=== PATIENT | male | born 1975 | race Caucasian/White ===

== ENCOUNTER → 2016-09-21 08:38 | Outpatient (CLI) | payer BC | END | disposition home or self-care (01) | LOC: D.CT 08:38 | DX: I65.23 Occlusion and stenosis of bilateral carotid arteries (principal) ==

== ENCOUNTER 2019-05-28 13:35 | Outpatient (CLI) | payer OTHER ==
[~2019-05-28] VITALS: Ht 175.3 cm; Wt 77.6 kg
[2019-05-28] MEDS ORDERED: OXYCODONE HCL5 M1 PO (14:38)
[2019-05-28] MEDS ORDERED: IBUPROFEN600 MG PO (14:40)
[2019-05-28] MEDS ORDERED: ZOFRAN4 MG PO (14:41)
[2019-05-28] MEDS ORDERED: FLOMAX0.4 MG PO (14:41)
[2019-05-28] MEDS ORDERED: COZAAR25 MG PO (14:42)
[2019-05-28] MEDS ORDERED: WELLBUTRIN SR150 MG PO (14:43)
[2019-05-28 15:13] VITALS: BP 124/76; Ht 175.3 cm; Wt 77.6 kg
--- NOTE | 2019-05-28 16:35 | NUR ---
PATIENT OPTS TO GO HOME AT THIS TIME, IS NOT HAVING ANY PAIN AND STATES IF IT RETURNS HE HAS MEDS. PIV DC'D WITH TIP INTACT. DISCHARGED HOME VIA AMBULATORY
== END 2019-05-28 16:35 | disposition home or self-care (01) ==
LOC: D.OPS 13:35 → EDSTATUS 14:00 → D.OPS 14:00
PROVIDERS: ATTEND Urology
DX: N20.0 Calculus of kidney (principal)

== ENCOUNTER 2019-05-29 04:05 | Day surgery (SDC) | payer OTHER ==
[~2019-05-29] VITALS: Ht 175.3 cm; Wt 77.7 kg
[~2019-05-29 04:05] MED LIST: COZAAR25 MG PO; FLOMAX0.4 MG PO; IBUPROFEN600 MG PO; OXYCODONE HCL5 M1 PO; WELLBUTRIN SR150 MG PO; ZOFRAN4 MG PO
[2019-05-29 05:22] LABS: BASOPHILS 0.2 % (0-2); EOSINOPHILS 0.8 % (0-7); HEMATOCRIT 43.1 % (42.0-54.0); HEMOGLOBIN 15.2 g/dL (13.5-17.5); IMMATURE GRANULOCYTES 0.2 % (0-5); LYMPHOCYTES 12.3 % (15-50); MCH 30.6 pg (26.0-34.0); MCHC 35.3 g/dL (31.0-37.0); MCV 86.7 fL (80.0-100.0); MONOCYTES 9.5 % (2-11); PLATELET COUNT 250 10x3/uL (130-400); RBC 4.97 10x6/uL (4.20-6.10); RDW 13.3 % (11.5-14.5); WBC 13.3 10x3/uL (4.8-10.8)
[2019-05-29 05:35] LABS: ALKALINE PHOSPHATASE 60 U/L (46-116); ALT (SGPT) 39 U/L (10-68); BILIRUBIN - TOTAL 0.73 mg/dL (0.2-1.3); CALC OSMOLALITY 283 mosm/kg (275-300); CALCIUM 8.8 mg/dL (8.5-10.1); CARBON DIOXIDE 28.9 mmol/L (21.0-32.0); CHLORIDE - SERUM 105 mmol/L (98-107); CREATININE - SERUM 1.1 mg/dL (0.6-1.3); GLUCOSE 120 mg/dL (74-106); POTASSIUM - SERUM 4.3 mmol/L (3.5-5.1); PROTEIN - SERUM 7.3 g/dL (6.4-8.2); SODIUM 141 mmol/L (136-145); UREA NITROGEN 17 mg/dL (7-18); eGFR NON AFRICAN AMERICAN 78 mL/min (90-120)
--- NOTE | 2019-05-29 05:44 | NUR ---
PT TO RADIOLOGY.
--- NOTE | 2019-05-29 05:54 | NUR ---
PT RETURNED FROM RADIOLOGY.
[2019-05-29 08:56] LABS: APPEARANCE CLEAR (CLEAR); BILIRUBIN NEGATIVE (NEGATIVE); COLOR YELLOW (YELLOW); GLUCOSE NEGATIVE (NEGATIVE); KETONE NEGATIVE (NEGATIVE); NITRITE NEGATIVE (NEGATIVE); PROTEIN NEGATIVE (NEGATIVE); SPECIFIC GRAVITY 1.015 (1.005-1.020); UROBILINOGEN NORMAL (NORMAL); WHITE CELLS - URINE RARE /hpf (0-5)
[2019-05-29 10:12] VITALS: Ht 175.3 cm; Wt 77.7 kg
--- NOTE | 2019-05-29 13:18 | NUR ---
CALLED IN ROOM TO UPDATE.
[2019-05-29 13:29] VITALS: BP 115/64
--- NOTE | 2019-05-29 16:06 | NUR ---
DISCHARGE PAPERWORK SIGNED, ALL QUESTIONS ANSWERED. IV TO LEFT AC DC'D, TIP INTACT. ESCORTED OUT BY WHEELCHAIR.
--- NOTE | 2019-05-30 16:00 | OP ---
PATIENT NAME: REAGAN SALAZAR MEDICAL RECORD: [id number] :75 LOCATION:[id number] ADMISSION DATE:05/29/19 SURGEON: RAYSHAWN BEAVERS MD DATE OF OPERATION: 05/29/2019 SURGEON: Rayshawn Beavers MD ANESTHESIA: General anesthesia by Kristen Smith CRNA. DIAGNOSIS: A 7-mm right distal ureteral stone. FINDINGS: Radiodense right distal ureteral stone at about the S2 level. PROCEDURES: Cystoscopy, right retrograde pyelogram, right ureteroscopy and stone extraction, right ureteral stent insertion 6-Guamanian x 24 cm with string attached. SPECIMENS: Right ureteral stone. ESTIMATED BLOOD LOSS: Minimal. CLINICAL HISTORY: This is a 43-year-old male with no previous history of kidney stones. He was in [place] for his work when he suffered acute right flank pain. A CT scan done in [place] earlier this week, shows a 6-mm stone lodged in the mid ureter. When he came back to [place], he came back to see me. I had scheduled him yesterday for a cystoscopy, right ureteral stent insertion with a plan for right ESWL. However, a KUB did not show any possible visible radiodense stones. He was also pain free at that time and he decided to cancel the procedure. He returned to the Emergency Room last night with again severe right flank pain. A CT scan done through our Emergency Room shows a 7-mm stone lodged in the right distal ureter. He was admitted for pain control. He comes now to have the stone removed by ureteroscopy. There are also some small punctate renal stones bilaterally in each kidney. He is not allergic to any medications. 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 DESCRIPTION OF PROCEDURE: The patient was given induction of general anesthesia. He was placed into lithotomy position and prepped and draped. Fluoroscopy revealed a possible radiodensity overlying the sacrum. Prostate was nonobstructive. No bladder tumors were seen. He has single ureteral orifices on each side. The right ureteral orifice was intubated with a 5-Guamanian open-ended ureteral catheter. Diluted contrast was injected for retrograde pyelogram. The radiodensity within the right sacrum was indeed the ureteral stone. A Sensor wire was placed through the lumen of the ureteral catheter up to the renal pelvis. Once the wire was in correct position, the ureteral catheter was removed. We then placed a 21-Guamanian x 4 cm UroMax dilation balloon. The ureteral orifice was dilated using the balloon dilator. I actually progressively dilated the distal ureter up to the level of the stone. We then switched to the rigid ureteroscope. The stone was seen in the ureter. I placed a 3-Guamanian 0-tip basket around the stone. The stone was heavily lodged in ureteral edema. Trying to pull the stone down, resulted in breakage of the basket wire. I then removed the ureteroscope. The area of tissue edema was then again balloon dilated with the ureteral dilation balloon. I went back up with the ureteroscope and this time I placed a 2.4-Guamanian 0-tip basket around the stone. The stone finally was extracted. It will be sent to pathology for stone analysis. I went back up with the ureteroscope to retrieve the broken OPERATIVE REPORT [id number] REAGAN SALAZAR basket fragment. This fragment was seen in the ureter where the stone had been. A Piranha grasping forceps was used to grasp the tail of the basket. The basket was entirely retrieved. It was intact. There was no other fragments left in the ureter. The wire was then backloaded into the cystoscope. Over the wire, I inserted a 6-Guamanian x 24 cm ureteral stent. Once the stent was in correct position, the wire was entirely withdrawn. The distal end of stent was pushed into the bladder using the pusher. The bladder was then emptied through the cystoscope sheath. The scope was removed entirely. The string from the basket hangs out of the urethra. It was tied to itself in a knot and cut shorter. The patient was awakened and brought to the recovery room. I will see the patient in followup in 2 weeks' time to remove the stent by pulling on the string. TRANSINT:[id number] Voice Confirmation ID: [id number] DOCUMENT ID: [id number] RAYSHAWN BEAVERS MD at 1600 CC: [id number] DICTATION DATE: 05/29/19 1316 [facility] [place]: 05/29/19 1554 DIS IN 05/29/19 [facility] [address] [place] [address]
== END 2019-05-29 16:08 | disposition home or self-care (01) ==
LOC: OBSVTIME → D.ER 04:05 → D.OPS 04:05 → D.ER 06:39 → D.MS 06:39 → OBSVTIME 06:39 → D.ER 07:02 → EDSTATUS 11:37 → D.MS 16:08 → D.OPS 16:08 → D.MS 16:08
PROVIDERS: Family Medicine; ATTEND Urology
DX: N20.1 Calculus of ureter (principal); I10 Essential (primary) hypertension